=== PATIENT | female | born 1980 | race Two or more races ===

== ENCOUNTER 2018-11-19 03:16 | Emergency (ER) | payer OTHER ==
--- NOTE | 2018-11-19 03:26 | EDPHY ---
H & P Stated Complaint: cold s/s x days. coughed hard, now back pain arm pain and DANIELLE Time Seen by Provider: 11/19/18 03:26 HPI/ROS: HPI CHIEF COMPLAINT: Worsening cough, left posterior neck and shoulder pain. HISTORY OF PRESENT ILLNESS: 38-year-old female otherwise healthy, no significant medical history presents to the emergency room with left posterior neck and shoulder pain. She states this started approximately 2 hr ago she was coughing vigorously and developed this pain. She states she coughed really hard and suddenly developed this sharp stabbing pain from her left lateral posterior neck to the left posterior shoulder. She denies any pleuritic pain when she breathes in. She states she has been sick for the past 4-5 days with cough and congestion. She reports that her cough is rather nonproductive. She went to her primary care doctor's office yesterday and was given Mucinex albuterol inhaler and cough medicine. She states she really has not improved that much. She coughed very hard tonight developed this pain this what prompted her to come to the emergency room. She describes it as sharp stabbing , left post scapula, left posterior neck, paravertebral, region. Denies left sided chest pain or pleuritic. Denies abdominal pain, denies Headache. Of note patient is Ukrainian-speaking only, science interpreter was used for history review of systems. Past Medical History: Denies medical history Past Surgical History: Denies surgical history Social History: Denies drugs alcohol tobacco. Family History: Denies significant cardiovascular history in the family. ROS REVIEW OF SYSTEMS: 10 Systems were reviewed and negative with the exception of the elements mentioned in the history of present illness. Exam Constitutional triage nursing summary reviewed, vital signs reviewed, awake/ alert. Eyes normal conjunctivae and sclera, EOMI, PERRLA. HENT neck exam: No significant midline tenderness or step-offs, does have some mild paravertebral cervical spine pain down into left trapezius region, reproducible on exam with tender palpation, worse with left arm movement especially when she resist against abduction, and when she fully abducts her arm inward she gets left posterior scapula left neck pain, reproducible on exam moist mucus membranes, no epistaxis, neck supple/ no meningismus, no raccoon eyes. Respiratory clear to auscultation bilaterally, normal breath sounds, no respiratory distress, no wheezing. Cardiovascular rate normal, regular rhythm, no murmur, no edema, distal pulses normal. Gastrointestinal soft, non-tender, no rebound, no guarding, normal bowel sounds, no distension, no pulsatile mass. Genitourinary no CVA tenderness. Musculoskeletal No bruit on exam, no midline vertebral tenderness, full range of motion, no calf swelling, no tenderness of extremities, no meningismus, good pulses, neurovascularly intact. Skin pink, warm, & dry, no rash, skin atraumatic. Neurologic normal neurological exam, no focal neurological abnormality, awake, alert and oriented x 3, AAOx3, moves all 4 extremities equally, motor intact, sensory intact, CN II-XII intact, normal cerebellar, normal vision, normal speech. Psychiatric normal mood/affect. Heme/Lymph/Immune no lymphadenopathy. Differential Diagnosis: Includes but is not limited to in a particular order musculoskeletal strain, muscle spasm, cervical strain, nerve root compression, annular tear, cardiac related pain, pneumothorax, pneumonia with PE Medical Decision Making: Plan for this patient IV establishment IV fluid bolus IV Toradol for pain control, basic labs, EKG, troponin, chest x-ray and re- evaluate. Re-evaluation: EKG interpretation by me on record in [employer] system. Impression time of EKG 3:51 a.m., sinus rhythm rate of 85 without any signs of acute ischemia. Trop 0.00 Ddimer Negative Ekg negative Repeat EKG time: 6:30 a.m., sinus rhythm rate of 92 with no signs of acute ischemia. [id number]: Patient re-examined at this time resting comfortably no acute distress. She denies any chest pain or shortness of breath, denies any pleuritic pain. Denies headache. She does still have some mild left posterior neck and shoulder pain reproducible on exam specially when she ranges her left shoulder and when you press on her left posterior scapula. It is reproducible on exam she does feel much better after IV Toradol. She had 2 troponins that are negative. She has a negative D-dimer EKGs that are not acutely ischemic. And feels much better after IV Toradol. At 7:08 a.m. I discussed all for test results with her with science interpreter went over return precautions she feels comfortable going home. I do recommend she return to the emergency room she develops any worsening pain she is comfortable this plan. I do recommend anti-inflammatory pain medicine and ice. She is comfortable this and return precautions discussed. Source: Patient - Personal History Current Tetanus/Diphtheria Vaccine: Unsure Current Tetanus Diphtheria and Acellular Pertussis (TDAP): Unsure - Medical/Surgical History Hx Asthma: No Hx Chronic Respiratory Disease: No Hx Diabetes: No Hx Cardiac Disease: No Hx Renal Disease: No Hx Cirrhosis: No Hx Alcoholism: No Hx HIV/AIDS: No Hx Splenectomy or Spleen Trauma: No Other PMH: denies - Social History Smoking Status: Never smoked Constitutional: Initial Vital Signs Temperature (C) 36.7 C 11/19/18 03:21 Heart Rate 104 H 11/19/18 03:21 Respiratory Rate 20 11/19/18 03:21 Blood Pressure 140/91 H 11/19/18 03:21 O2 Sat (%) 96 11/19/18 03:21 O2 Delivery Mode Room Air Allergies/Adverse Reactions: No Known Allergies Allergy (Unverified 11/19/18 03:25) Home Medications: Medication Instructions Recorded Albuterol Sulfate [Proair Hfa] 11/19/18 Benzonatate 11/19/18 Ibuprofen [Motrin (*)] 800 mg PO Q6-8PRN #10 tab 11/19/18 guaiFENesin [Guaifenesin] 11/19/18 Medical Decision Making - Data Points Laboratory Results: Laboratory Results 11/19/18 03:45 11/19/18 03:45 Medications Given: Discontinued Medications Sodium Chloride (Ns) 1,000 mls @ 0 mls/hr IV EDNOW ONE; Wide Open PRN Reason: Protocol Stop: 11/19/18 03:39 Last Admin: 11/19/18 03:45 Dose: 1,000 mls Ketorolac Tromethamine (Toradol) 15 mg IVP EDNOW ONE Stop: 11/19/18 03:39 Last Admin: 11/19/18 03:45 Dose: 15 mg Point of Care Test Results: Chemistry 11/19/18 11/19/18 06:38 03:49 POC Troponin I 0.00 ng/mL ng/mL 0.00 ng/mL ng/mL (0.00-0.08) (0.00-0.08) Departure - Departure Disposition: Home, Routine, Self-Care Clinical Impression: Neck pain Condition: Good Instructions: Cervical Strain (ED), Neck Pain (ED), Acute Neck Pain (ED) Additional Instructions: 1. Recommend rest. 2. Anti-inflammatory pain medicine like Tylenol and/or Motrin 3. Ice. 4. Return to the emergency room if it is worse. Referrals: Jeison Fish PA [Primary Care Provider] - As per Instructions Prescriptions: Ibuprofen [Motrin (*)] 800 mg PO Q6-8PRN #10 tab Print Language: Ukrainian
[2018-11-19] MEDS ORDERED: NS 1,000 ML IV ONE (03:38)
[2018-11-19] MEDS ORDERED: KETOROLAC 15 MG/1 ML SDV IVP ONE (03:38)
[2018-11-19 03:56] LABS: PLATELET COUNT 231 10^3/uL (150-400)
[2018-11-19 06:40] VITALS: BP 128/81
--- NOTE | 2018-11-19 08:03 | CPEKG ---
Test Reason : OPEN Blood Pressure : / mmHG Vent. Rate : 085 BPM Atrial Rate : 085 BPM P-R Int : 161 ms QRS Dur : 089 ms QT Int : 352 ms P-R-T Axes : 042 016 025 degrees QTc Int : 419 ms Sinus rhythm Probable left atrial enlargement Confirmed by Kenji Thompson ([id number]) on 11/19/2018 8:02:53 AM Referred By: Kenji Thompson Confirmed By:Kenji Thompson
--- NOTE | 2018-11-19 08:03 | CPEKG ---
Test Reason : OPEN Blood Pressure : / mmHG Vent. Rate : 092 BPM Atrial Rate : 093 BPM P-R Int : 166 ms QRS Dur : 087 ms QT Int : 349 ms P-R-T Axes : 016 008 029 degrees QTc Int : 432 ms Sinus rhythm Left atrial enlargement Confirmed by Kenji Thompson ([id number]) on 11/19/2018 8:02:53 AM Referred By: Kenji Thompson Confirmed By:Kenji Thompson
== END 2018-11-19 07:10 | disposition home or self-care (01) ==
DX: M54.2 Cervicalgia (principal); M25.512 Pain in left shoulder; R05 Cough; E86.9 Volume depletion, unspecified
CPT/HCPCS: 84484-ER; 96374; J1885